=== PATIENT | female | born 1945 | race African-American/Black ===

== ENCOUNTER 2019-04-09 09:23 | Emergency (ER) | payer MEDICARE, MEDICAID ==
[~2019-04-09] VITALS: Ht 172.7 cm; Wt 90.7 kg
--- NOTE | 2019-04-09 09:44 | ED Cardiac General ---
History of Present Illness General Chief Complaint: Cardiac/General Problems Stated Complaint: LOW HR Source: patient, family (daughter) Exam Limitations: no limitations History of Present Illness Date Seen by Provider: Apr 09, 2019 Time Seen by Provider: 09:30 Severity: mild Activities at Onset: none The patient is a pleasant 73-year-old female who presents for evaluation of bradycardia. She states that she was at an outpatient surgery Center today to have a trigger finger surgery and the anesthesiologist mentioned to her that her heart rate was slow and that she was slightly hypertensive. He recommended that she go to an emergency department to be evaluated. The patient, accompanied by her daughter, mentions that she has been feeling somewhat lightheaded over the last few days or weeks. Her daughter mentions that she has been falling more frequently than usual without any serious injuries. The patient is alert and oriented 4, calm, and appears to be in no distress. She denies chest pain, shortness of breath, abdominal or back pain, nausea or vomiting, diaphoresis, lower extremity edema or syncope. She mentions that she has been urinating frequently but states she takes a "water pill". She acknowledges a history of hypertension but denies having a data warehousing manager. She did take her blood pressure medications this morning. Allergies and Home Medications Allergies Coded Allergies: codeine (Verified Allergy, Unknown, 04/09/19) morphine (Verified Allergy, Unknown, 04/09/19) oxycodone (Verified Allergy, Unknown, 04/09/19) propoxyphene (Verified Allergy, Unknown, 04/09/19) tramadol (Verified Allergy, Unknown, 04/09/19) Patient Home Medication List Home Medication List Reviewed: Yes Review of Systems Review of Systems Constitutional: no symptoms reported EENTM: No Symptoms Reported Respiratory: No Symptoms Reported Cardiovascular: Lightheadedness Gastrointestinal: No Symptoms Reported Genitourinary: Frequency Musculoskeletal: no symptoms reported Skin: no symptoms reported Psychiatric/Neurological: No Symptoms Reported, Other (left facial pain, 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 oz. kg; BMI Method: General Appearance: No Apparent Distress, WD/WN HEENT: PERRL/EOMI, Pharynx Normal Neck: Full Range of Motion, Normal Inspection, Non Tender, Supple Respiratory: Chest Non Tender, Lungs Clear, Normal Breath Sounds, No Accessory Muscle Use, No Respiratory Distress Cardiovascular: No Edema, No Gallop, No JVD, No Murmur, Normal Peripheral Pulses, Bradycardia Gastrointestinal: Normal Bowel Sounds, No Organomegaly, No Pulsatile Mass, Non Tender, Soft Extremity: Normal Capillary Refill, Normal Inspection, Normal Range of Motion, Non Tender, No Calf Tenderness Neurologic/Psychiatric: Alert, Oriented x3, No Motor/Sensory Deficits, Normal Mood/Affect, shipping hand II-XII Norm as Tested Skin: Normal Color, Warm/Dry Lymphatic: No Adenopathy Progress/Results/Core Measures Results/Orders Lab Results Laboratory Tests Test 04/09/19 09:45 04/09/19 10:10 Range/Units White Blood Count 7.9 4.3-11.0 10^3/uL Red Blood Count 4.00 L 4.35-5.85 10^6/uL Hemoglobin 11.5 11.5-16.0 G/DL Hematocrit 35 35-52 % Mean Corpuscular Volume 88 80-99 FL Mean Corpuscular Hemoglobin 29 25-34 PG Mean Corpuscular Hemoglobin Concent 33 32-36 G/DL Red Cell Distribution Width 16.5 H 10.0-14.5 % Platelet Count 362 130-400 10^3/uL Mean Platelet Volume 10.2 7.4-10.4 FL Neutrophils (%) (Auto) 71 42-75 % Lymphocytes (%) (Auto) 19 12-44 % Monocytes (%) (Auto) 9 0-12 % Eosinophils (%) (Auto) 1 0-10 % Basophils (%) (Auto) 0 0-10 % Neutrophils # (Auto) 5.6 1.8-7.8 X 10^3 Lymphocytes # (Auto) 1.5 1.0-4.0 X 10^3 Monocytes # (Auto) 0.7 0.0-1.0 X 10^3 Eosinophils # (Auto) 0.1 0.0-0.3 10^3/uL Basophils # (Auto) 0.0 0.0-0.1 10^3/uL Prothrombin Time 13.8 12.2-14.7 SEC INR Comment 1.0 0.8-1.4 Activated Partial Thromboplast Time 28 24-35 SEC Sodium Level 142 135-145 MMOL/L Potassium Level 3.4 L 3.6-5.0 MMOL/L Chloride Level 106 98-107 MMOL/L Carbon Dioxide Level 23 21-32 MMOL/L Anion Gap 13 5-14 MMOL/L Blood Urea Nitrogen 12 7-18 MG/DL Creatinine 1.04 0.60-1.30 MG/DL Estimat Glomerular Filtration Rate > 60 BUN/Creatinine Ratio 12 Glucose Level 120 H 70-105 MG/DL Calcium Level 11.0 H 8.5-10.1 MG/DL Corrected Calcium 10.9 H 8.5-10.1 MG/DL Magnesium Level 2.0 1.8-2.4 MG/DL Total Bilirubin 0.5 0.1-1.0 MG/DL Aspartate Amino Transf (AST/SGOT) 16 5-34 U/L Alanine Aminotransferase (ALT/SGPT) 12 0-55 U/L Alkaline Phosphatase 141 H 40-136 U/L Myoglobin 43.4 10.0-92.0 NG/ML Pro-B-Type Natriuretic Peptide 136.3 H <75.0 PG/ML Total Protein 7.7 6.4-8.2 GM/DL Albumin 4.1 3.2-4.5 GM/DL Urine Color YELLOW Urine Clarity CLOUDY Urine pH 6.0 5-9 Urine Specific [place] 1.015 L 1.016-1.022 Urine Protein 2+ H NEGATIVE Urine Glucose (UA) NEGATIVE NEGATIVE Urine Ketones NEGATIVE NEGATIVE Urine Nitrite NEGATIVE NEGATIVE Urine Bilirubin NEGATIVE NEGATIVE Urine Urobilinogen 1.0 NORMAL MG/DL Urine Leukocyte Esterase NEGATIVE NEGATIVE Urine RBC (Auto) NEGATIVE NEGATIVE Urine RBC NONE /HPF Urine WBC 0-2 /HPF Urine Squamous Epithelial Cells 2-5 /HPF Urine Crystals NONE /LPF Urine Bacteria FEW H /HPF Urine Casts PRESENT /LPF Urine Hyaline Casts 0-2 H /LPF Urine Mucus MODERATE H /LPF Urine Culture Indicated NO My Orders Orders - ERMELINDA MELISSA DO Cbc With Automated Diff (04/09/19 09:35) Magnesium (04/09/19 09:35) Chest 1 View Ap/Pa Only (04/09/19 09:35) Ekg Tracing (04/09/19 09:35) Comprehensive Metabolic Panel (04/09/19 09:35) Myoglobin Serum (04/09/19 09:35) Protime With Inr (04/09/19 09:35) Partial Thromboplastin Time (04/09/19 09:35) O2 (04/09/19 09:35) Monitor-Rhythm Ecg Trace Only (04/09/19 09:35) Ed Iv/Invasive Line Start (04/09/19 09:35) Creatine Kinase Mb (04/09/19 09:35) Probnp Fs (04/09/19 09:35) Urinalysis (04/09/19 09:35) Potassium Chloride (Tablet) (K Dur Table (04/09/19 10:45) Ceftriaxone For Iv Use (Rocephin For I (04/09/19 11:45) Medications Given in ED Current Medications Medications Dose Ordered Sig/Robi Route Start Time Stop Time Status Last Admin Dose Admin Potassium Chloride 20 meq ONCE ONCE PO 04/09/19 10:45 04/09/19 10:46 DC 04/09/19 11:14 20 MEQ Vital Signs/I&O 04/09/19 09:32 Temp 96.9 Pulse 52 Resp 16 B/P (MAP) 165/83 (110) Pulse Ox 100 O2 Delivery Room Air Progress Progress Note : Progress Note @1110 - Patient and family updated on lab and imaging results. Awaiting urinalysis. Hypokalemia noted and patient given oral. The patient states that she is feeling better and wants to go home soon. Explained to the patient that her low heart rate is likely secondary to her medications and that she really needs to follow up with a data warehousing manager. I will send her home with information for a specific data warehousing manager today. The patient's heart rate fluctuates between 45 and 70. She is noted to be taking both Metoprolol and Amlodipine. @1205 - Patient and family updated on lab and imaging results. The patient will go home with a prescription for Keflex for UTI. They requested a data warehousing manager at and had been given the name, address, and phone number and information for a data warehousing manager there. Diagnostic Imaging Diagonstic Imaging: Xray Plain Films/CT/US/NM/MRI: chest Comments [facility]. [place], [place] NAME: BRYAN BAXTER [facility] REC#: [id number] PT STATUS: REG ER : 1945 PHYSICIAN: ERMELINDA MELISSA DO ADMIT DATE: 04/09/19/ER FS Draft Date of Exam:04/09/19 CHEST 1 VIEW AP/PA ONLY INDICATION: Bradycardia. Time of exam: 9:39 AM No prior studies available for comparison. Heart size is normal. No infiltrates or failure is seen. There is no effusion or pneumothorax. IMPRESSION: No acute cardiopulmonary process is detected. Dictated on workstation # [id number] Dict: 04/09/19 1006 Trans: 04/09/19 1009 [facility] [id number] Interpreted by: JUAN CARLOS NUNO MD Electronically signed by: Departure Impression Primary Impression: Symptomatic bradycardia Additional Impression: Acute UTI Disposition: 01 HOME, SELF-CARE Condition: Stable Departure-Patient Inst. Referrals: SVETLANA GOMEZ MD (PCP/Family) Primary Care Physician VALENTINA GAINES MD Patient Instructions: Bradycardia, Urinary Tract Infection, Adult (DC) Add. Discharge Instructions: Continue to take your prescribed medications as directed. Follow-up with Dr. Fco Mercer at cardiology within the next 1-2 days. Return to the emergency Department immediately for new or worsening symptoms. Yamilet Ta MD Cardiology Locations: [place] [address] Scripts Cephalexin (Cephalexin) 500 Mg Capsule 500 MG PO BID for 5 Days, #10 CAP Prov: ERMELINDA MELISSA DO 04/09/19 ERMELINDA MELISSA DO Apr 09, 2019 09:44
[2019-04-09 09:54] LABS: HEMATOCRIT 35 % (35-52); HEMOGLOBIN 11.5 G/DL (11.5-16.0); MEAN CORPUSCULAR HEMOGLOBIN 29 PG (25-34); WHITE BLOOD COUNT 7.9 10^3/uL (4.3-11.0)
[2019-04-09 09:55] LABS: BASOPHILS % (AUTO) 0 % (0-10); EOSINOPHILS # (AUTO) 0.1 10^3/uL (0.0-0.3); EOSINOPHILS % (AUTO) 1 % (0-10); LYMPHOCYTES # (AUTO) 1.5 X 10^3 (1.0-4.0); LYMPHOCYTES % (AUTO) 19 % (12-44); MEAN CORPUSCULAR HGB CONC 33 G/DL (32-36); MEAN CORPUSCULAR VOLUME 88 FL (80-99); MEAN PLATELET VOLUME 10.2 FL (7.4-10.4); MONOCYTES # (AUTO) 0.7 X 10^3 (0.0-1.0); MONOCYTES % (AUTO) 9 % (0-12); NEUTROPHILS # (AUTO) 5.6 X 10^3 (1.8-7.8); NEUTROPHILS % (AUTO) 71 % (42-75); PLATELET COUNT 362 10^3/uL (130-400); RED CELL DISTRIBUTION WIDTH 16.5 % (10.0-14.5)
[2019-04-09 10:07] LABS: PROTHROMBIN TIME PATIENT 13.8 SEC (12.2-14.7)
--- NOTE | 2019-04-09 10:10 | Diagnostic Imaging Report ---
INDICATION: Bradycardia. Time of exam: 9:39 AM No prior studies available for comparison. Heart size is normal. No infiltrates or failure is seen. There is no effusion or pneumothorax. IMPRESSION: No acute cardiopulmonary process is detected. Dictated by: Dictated on workstation # [id number]
[2019-04-09 10:22] LABS: ALANINE AMINOTRANSFERASE 12 U/L (0-55); ALKALINE PHOSPHATASE 141 U/L (40-136); BILIRUBIN,TOTAL 0.5 MG/DL (0.1-1.0); BUN/CREATININE RATIO 12; CARBON DIOXIDE 23 MMOL/L (21-32); CHLORIDE 106 MMOL/L (98-107); CREATININE SERUM 1.04 MG/DL (0.60-1.30); GFR ESTIMATED > 60; GLUCOSE 120 MG/DL (70-105); POTASSIUM 3.4 MMOL/L (3.6-5.0); SODIUM 142 MMOL/L (135-145); TOTAL PROTEIN 7.7 GM/DL (6.4-8.2)
[2019-04-09 10:23] LABS: ALBUMIN 4.1 GM/DL (3.2-4.5)
[2019-04-09] MEDS ORDERED: KCL 20 MEQ TAB (K-DUR) PO ONE (10:45)
[2019-04-09 11:35] LABS: CLARITY,URINE CLOUDY; COLOR,URINE YELLOW
[2019-04-09 11:36] LABS: BACTERIA,URINE FEW /HPF; BILIRUBIN,URINE NEGATIVE (NEGATIVE); GLUCOSE, URINE (UA) NEGATIVE (NEGATIVE); HYALINE CASTS, URINE 0-2 /LPF; KETONES,URINE NEGATIVE (NEGATIVE); LEUKOCYTE ESTERASE ,URINE NEGATIVE (NEGATIVE); NITRITE,URINE NEGATIVE (NEGATIVE); PROTEIN,URINE 2+ (NEGATIVE); WBC,URINE 0-2 /HPF
[2019-04-09] MEDS: cefTRIAXone FOR IV USE 1,000 MG in WATER (STERILE) FOR INJECTION 10 ML IV ONE ×2 (11:57→12:12)
[2019-04-09] MEDS ORDERED: CEPH500C PO (12:06)
[2019-04-09] MEDS ORDERED: CEPHALEXIN 250 MG (KEFLEX) CAP PO ONE (12:15)
[2019-04-09 12:22] VITALS: BP 156/59
[2019-04-09 14:55] LABS: CREATINE KINASE MB 0.6 NG/ML (<6.6)
== END 2019-04-09 12:22 | disposition home or self-care (01) ==
LOC: EDUNIT# 09:23 → ER FS 09:25
DX: R00.1 Bradycardia, unspecified (principal); N39.0 Urinary tract infection, site not specified; I10 Essential (primary) hypertension; Z88.5 Allergy status to narcotic agent; Z88.6 Allergy status to analgesic agent; Z88.8 Allergy status to other drugs, medicaments and biological substances
CPT/HCPCS: 36415; 71045; 80053; 81000; 82553; 83735; 83874; 83880; 85025; 85610; 85730; 93005; 93041